=== PATIENT | male | born 1945 | race Caucasian/White ===

== ENCOUNTER 2024-10-22 20:29 | Inpatient (IN) ==
[2024-10-22] MEDS ORDERED: IOPAMIDOL 100 ML BOTTLE IV ONE (20:30)
[2024-10-22] MEDS: ASPIRIN 81 MG TAB.CHEW CHEWED ONE (20:58)
[2024-10-22 21:28] LABS: Basophils # (Auto) 0.03 K/mcL (0.00-0.30); Basophils % (Auto) 0.4 % (0.0-2.0); Eosinophils # (Auto) 0.19 K/mcL (0.00-0.70); Eosinophils % (Auto) 2.3 % (0.0-7.0); Hemoglobin 15.8 g/dL (13.7-17.5); Lymphocytes # (Auto) 2.01 K/mcL (1.50-4.80); Mean Cell Volume 98.3 fL (80.0-100.0); Mean Corpuscular HGB Conc 34.3 g/dL (31.0-36.0); Mean Platelet Volume 10.4 fL (8.8-12.5); Monocytes # (Auto) 0.74 K/mcL (0.10-0.90); Monocytes % (Auto) 8.8 % (1.0-12.0); Neutrophils % (Auto) 64.4 % (38.0-78.0); Platelet Count 257 K/mcL (140-440); RBC 4.68 M/mcL (4.63-6.08); Red Cell Distribution Width 12.9 % (11.5-14.5); WBC 8.4 K/mcL (4.5-11.0)
[2024-10-22 22:42] LABS: Appearance,Urine Clear (Clear); Bilirubin,Urine Negative (Negative); Color,Urine Yellow; Glucose,Urine (UA) >=1000 mg/dL (Negative); Ketones,Urine Negative (Negative); Leukocyte Esterase,Urine Negative /uL (Negative); Nitrate,Urine Negative (Negative); PH,Urine 5.5 (5.0-9.0); Protein,Urine Negative (Negative); Specific Gravity,Urine <= 1.005 (1.000-1.035); Urine Blood Negative ery/mcL (Negative); Urine RBC 0 /hpf (0-3); Urine Squamous Epithelial Cell 0 /hpf (0-4); Urine WBC 0 /hpf (0-4); Urobilinogen,Urine Normal
[2024-10-22 22:44] LABS: ALT/SGPT 9 U/L (<40); AST/SGOT 16 U/L (<40); Albumin 3.7 gm/dL (3.2-5.2); Albumin/Globulin Ratio 1.9 (1.0-2.3); Alkaline Phosphatase 68 U/L (39-117); Bilirubin,Total 0.4 mg/dL (0.1-1.0); Blood Urea Nitrogen 12 mg/dL (8-23); Calcium 9.1 mg/dL (8.6-10.4); Carbon Dioxide 23 mmol/L (22-30); Chloride 102 mmol/L (96-108); Glomerular Filtration Rate 82; Glucose 145 mg/dL (70-105); Potassium 3.6 mmol/L (3.3-5.1); Sodium 138 mmol/L (133-145)
[2024-10-22] MEDS: 0.9 % SODIUM CHLORIDE 1,000 ML IV ONE (23:10)
[2024-10-22 23:12] LABS: Prothrombin Time 14.2 sec (11.9-14.5)
[2024-10-22 23:17] LABS: Partial Thromboplastin Time 30.2 sec (20.0-37.0)
[2024-10-23] MEDS: APIXABAN 5 MG TABLET PO ONE (10:32)
[2024-10-23] MEDS ORDERED: METOCLOPRAMIDE 10 MG/2 ML VIAL IV PRN (11:59)
[2024-10-23] MEDS ORDERED: IPRATROPIUM/ALBUTEROL 3 ML AMPUL.NEB NEB PRN (11:59)
[2024-10-23] MEDS ORDERED: MAGNESIUM SULFATE 2 GM/50 ML BAG IV PRN (11:59)
[2024-10-23] MEDS ORDERED: ONDANSETRON 4 MG/2 ML VIAL IV PRN (11:59)
[2024-10-23] MEDS ORDERED: POTASSIUM CHLORIDE 20 MEQ TABLET PO PRN ×2 (11:59)
[2024-10-23] MEDS ORDERED: DEXTROSE 31 GM ORAL.SUSP PO PRN (11:59)
[2024-10-23] MEDS ORDERED: SENNOSIDES 1 TABLET PO PRN (11:59)
[2024-10-23] MEDS ORDERED: ACETAMINOPHEN 160 MG/5 ML ORAL.SOL PO PRN (11:59)
[2024-10-23] MEDS ORDERED: POTASSIUM CHLORIDE 40 MEQ in DEXTROSE 5% IN WATER 500 ML IV PRN (11:59)
[2024-10-23] MEDS ORDERED: POLYETHYLENE GLYCOL 3350 17 GM PACKET PO PRN (11:59)
[2024-10-23] MEDS ORDERED: DEXTROSE 50% 50 ML VIAL IV PRN (11:59)
[2024-10-23 12:54] LABS: HDL Cholesterol 42 mg/dL (>40); LDL Cholesterol,Calculated 67 mg/dL (<100); Non-HDL Cholesterol 83 mg/dL (<130); Triglycerides 81 mg/dL (<150)
[2024-10-23] MEDS: INSULIN LISPRO 1 UNIT/0.01 ML UNIT SQ SCH (13:40)
[2024-10-23] MEDS: METOPROLOL TARTRATE 5 MG/5 ML VIAL IV PRN (17:49)
[2024-10-23] MEDS: DOCUSATE SODIUM 100 MG CAPSULE PO SCH (20:09)
[2024-10-23] MEDS: ATORVASTATIN 40 MG TABLET PO SCH (20:09)
[2024-10-23] MEDS: APIXABAN 5 MG TABLET PO SCH (20:09)
[2024-10-24 06:32] LABS: ALT/SGPT 9 U/L (<40); AST/SGOT 17 U/L (<40); Albumin 3.9 gm/dL (3.2-5.2); Albumin/Globulin Ratio 1.8 (1.0-2.3); Alkaline Phosphatase 71 U/L (39-117); Bilirubin,Direct 0.3 mg/dL (<0.3); Bilirubin,Total 0.6 mg/dL (0.1-1.0); Blood Urea Nitrogen 17 mg/dL (8-23); Calcium 9.2 mg/dL (8.6-10.4); Carbon Dioxide 24 mmol/L (22-30); Chloride 102 mmol/L (96-108); Globulin 2.2 gm/dL (2.2-3.7); Glomerular Filtration Rate 86; Glucose 118 mg/dL (70-105); Lactate Dehydrogenase 167 U/L (135-225); Phosphorous 3.3 mg/dL (2.5-4.5); Potassium 4.1 mmol/L (3.3-5.1); Sodium 138 mmol/L (133-145); Triglycerides 69 mg/dL (<150); Uric Acid 5.6 mg/dL (2.5-8.0)
[2024-10-24 07:30] LABS: Digoxin 0.4 ng/mL
[2024-10-24 07:31] LABS: Estimated Average Glucose(eAG) 194 mg/dL; Hemoglobin A1C 8.4 % Hgb (4.0-6.0)
[2024-10-24] MEDS ORDERED: METOPROLOL SUCCINATE 50 MG TAB.XL.24H PO SCH (09:00)
[2024-10-24] MEDS: CLOPIDOGREL 75 MG TABLET PO SCH (09:13)
[2024-10-24] MEDS: INSULIN GLARGINE, HUMAN 1 UNIT/0.01 ML SQ SCH (09:13)
[2024-10-24] MEDS: DIGOXIN 125 MCG TABLET PO SCH (14:09)
[2024-10-27 09:50] VITALS: TEMP 97.4; O2SAT 98
== END 2024-10-27 10:04 | DRG 65 ==
LOC: ED 20:29 → ICU 10-23 11:53 → MEDSUR 10-24 23:40
PROVIDERS: ADMIT Internal Medicine; ATTEND Internal Medicine

== ENCOUNTER 2025-08-11 23:21 | Observation (INO) ==
[2025-08-12 00:05] LABS: Basophils # (Auto) 0.04 K/mcL (0.00-0.30); Basophils % (Auto) 0.5 % (0.0-2.0); Eosinophils # (Auto) 0.17 K/mcL (0.00-0.70); Eosinophils % (Auto) 1.9 % (0.0-7.0); Hematocrit 44.2 % (40.1-51.0); Hemoglobin 15.6 g/dL (13.7-17.5); Lymphocytes # (Auto) 1.35 K/mcL (1.50-4.80); Lymphocytes % (Auto) 15.4 % (15.5-49.0); Mean Corpuscular HGB Conc 35.3 g/dL (31.0-36.0); Monocytes # (Auto) 0.60 K/mcL (0.10-0.90); Monocytes % (Auto) 6.8 % (1.0-12.0); Neutrophils % (Auto) 75.2 % (38.0-78.0); Platelet Count 261 K/mcL (140-440); RBC 4.49 M/mcL (4.63-6.08); WBC 8.8 K/mcL (4.5-11.0)
[2025-08-12 00:36] LABS: Thyroid Stimulating Hormone 3.79 uIU/mL (0.27-5.01)
[2025-08-12 00:47] LABS: ALT/SGPT 18 U/L (<40); AST/SGOT 16 U/L (<40); Albumin 4.3 gm/dL (3.2-5.2); Albumin/Globulin Ratio 1.7 (1.0-2.3); Alkaline Phosphatase 77 U/L (39-117); Anion Gap 10.0 (8.0-16.0); Bilirubin,Total 0.3 mg/dL (0.1-1.0); Blood Urea Nitrogen 13 mg/dL (8-23); Calcium 9.4 mg/dL (8.6-10.4); Carbon Dioxide 25 mmol/L (22-30); Chloride 103 mmol/L (96-108); Globulin 2.6 gm/dL (2.2-3.7); Glucose 135 mg/dL (70-105); Potassium 4.0 mmol/L (3.3-5.1); Sodium 138 mmol/L (133-145)
[2025-08-12] MEDS ORDERED: ONDANSETRON 4 MG/2 ML VIAL IV PRN (02:48)
[2025-08-12] MEDS ORDERED: ACETAMINOPHEN 325 MG TABLET PO PRN (02:48)
[2025-08-12] MEDS ORDERED: SENNOSIDES 1 TABLET PO PRN (02:48)
[2025-08-12] MEDS ORDERED: LORazepam 2 MG/ML VIAL IV PRN (02:53)
[2025-08-12 06:17] LABS: Basophils # (Auto) 0.03 K/mcL (0.00-0.30); Basophils % (Auto) 0.4 % (0.0-2.0); Eosinophils # (Auto) 0.15 K/mcL (0.00-0.70); Eosinophils % (Auto) 2.0 % (0.0-7.0); Hematocrit 43.2 % (40.1-51.0); Hemoglobin 15.0 g/dL (13.7-17.5); Lymphocytes # (Auto) 2.32 K/mcL (1.50-4.80); Lymphocytes % (Auto) 31.3 % (15.5-49.0); Mean Corpuscular HGB Conc 34.7 g/dL (31.0-36.0); Monocytes # (Auto) 0.64 K/mcL (0.10-0.90); Monocytes % (Auto) 8.6 % (1.0-12.0); Neutrophils % (Auto) 57.6 % (38.0-78.0); Platelet Count 249 K/mcL (140-440); RBC 4.37 M/mcL (4.63-6.08); WBC 7.4 K/mcL (4.5-11.0)
[2025-08-12 06:49] LABS: ALT/SGPT 13 U/L (<40); AST/SGOT 14 U/L (<40); Albumin 4.0 gm/dL (3.2-5.2); Albumin/Globulin Ratio 1.7 (1.0-2.3); Alkaline Phosphatase 71 U/L (39-117); Anion Gap 10.0 (8.0-16.0); Bilirubin,Direct 0.4 mg/dL (<0.3); Bilirubin,Total 0.5 mg/dL (0.1-1.0); Blood Urea Nitrogen 14 mg/dL (8-23); Calcium 9.2 mg/dL (8.6-10.4); Carbon Dioxide 24 mmol/L (22-30); Chloride 105 mmol/L (96-108); Globulin 2.4 gm/dL (2.2-3.7); Glucose 78 mg/dL (70-105); HDL Cholesterol 46 mg/dL (>40); LDL Cholesterol,Calculated 46 mg/dL (<100); Phosphorous 3.8 mg/dL (2.5-4.5); Potassium 3.6 mmol/L (3.3-5.1); Sodium 139 mmol/L (133-145); Thyroid Stimulating Hormone 2.35 uIU/mL (0.27-5.01); Triglycerides 56 mg/dL (<150); Uric Acid 4.9 mg/dL (2.5-8.0)
[2025-08-12 07:09] LABS: Estimated Average Glucose(eAG) 203 mg/dL; Hemoglobin A1C 8.7 % Hgb (4.0-6.0)
[2025-08-12] MEDS ORDERED: ASPIRIN 81 MG TAB.CHEW CHEWED SCH (09:00)
[2025-08-12] MEDS ORDERED: APIXABAN 5 MG TABLET PO SCH (09:00)
[2025-08-12] MEDS ORDERED: HEPARIN 5,000 UNIT/ML VIAL SQ SCH (09:00)
[2025-08-12] MEDS: 0.9 % SODIUM CHLORIDE 10 ML SYRINGE IV SCH (09:46)
[2025-08-12] MEDS: APIXABAN 5 MG TABLET PO SCH (10:45)
[2025-08-12 15:30] LABS: Bacteria,Urine Few /hpf (0); Bilirubin,Urine NEGATIVE (Negative); Color,Urine YELLOW; Glucose,Urine (UA) >=1000 mg/dL (Negative); Ketones,Urine NEGATIVE (Negative); Leukocyte Esterase,Urine NEGATIVE /uL (Negative); Mucus,Urine Mod /hpf; PH,Urine 5.5 (5.0-9.0); Protein,Urine NEGATIVE (Negative); Specific Gravity,Urine 1.025 (1.000-1.035); Urobilinogen,Urine 0.2 mg/dL
[2025-08-12] MEDS: LATANOPROST OPHTH DROPS 2.5ML BOTTLE OS SCH (20:16)
[2025-08-12] MEDS: ATORVASTATIN 40 MG TABLET PO SCH (20:16)
[2025-08-12] MEDS ORDERED: ATORVASTATIN 40 MG TABLET PO SCH (21:00)
[2025-08-13] MEDS: MELATONIN 3 MG TABLET PO PRN (01:12)
[2025-08-13] MEDS ORDERED: CLOPIDOGREL 75 MG TABLET PO SCH (09:00)
[2025-08-13] MEDS: DIGOXIN 125 MCG TABLET PO SCH (09:04)
[2025-08-13] MEDS: CLOPIDOGREL 75 MG TABLET PO SCH (09:05)
[2025-08-13] MEDS: Tiotropium-Olodaterol [Stiolto Respimat] 2.5-2.5 mcg Inhaler INH SCH (09:06)
[2025-08-13] MEDS: INSULIN GLARGINE, HUMAN 1 UNIT/0.01 ML SQ SCH (09:11)
[2025-08-13] MEDS ORDERED: DEXTROSE 31 GM ORAL.SUSP PO PRN (09:13)
[2025-08-13] MEDS ORDERED: DEXTROSE 50% 50 ML VIAL IV PRN (09:13)
[2025-08-13] MEDS: METOPROLOL SUCCINATE 25 MG TAB.XL.24H PO SCH (09:48)
[2025-08-13] MEDS: INSULIN LISPRO 1 UNIT/0.01 ML UNIT SQ SCH (11:22)
[2025-08-13 13:20] VITALS: TEMP 97.6
[2025-08-13 13:58] VITALS: O2SAT 97
== END 2025-08-13 14:48 | disposition home or self-care (01) ==
LOC: ED 23:21 → ICU 23:21 → MEDSUR 08-12 17:33
PROVIDERS: ADMIT Student in an Organized Health Care Education/Training Program; ATTEND Internal Medicine

== ENCOUNTER 2025-09-07 03:32 | Observation (INO) ==
[2025-09-07 04:03] LABS: VBG HCO3 25.5 mmol/L (24.0-28.0); VBG PCO2 35.9 mmHg (41.0-51.0); VBG PH 7.47 U (7.32-7.42); VBG PO2 52.9 mmHg (25.0-40.0)
[2025-09-07 04:03] LABS: Basophils # (Auto) 0.03 K/mcL (0.00-0.30); Basophils % (Auto) 0.4 % (0.0-2.0); Eosinophils # (Auto) 0.17 K/mcL (0.00-0.70); Eosinophils % (Auto) 2.5 % (0.0-7.0); Hematocrit 43.5 % (40.1-51.0); Hemoglobin 14.9 g/dL (13.7-17.5); Lymphocytes # (Auto) 1.56 K/mcL (1.50-4.80); Lymphocytes % (Auto) 22.5 % (15.5-49.0); Mean Corpuscular HGB Conc 34.3 g/dL (31.0-36.0); Monocytes # (Auto) 0.55 K/mcL (0.10-0.90); Monocytes % (Auto) 7.9 % (1.0-12.0); Neutrophils % (Auto) 66.6 % (38.0-78.0); Platelet Count 190 K/mcL (140-440); RBC 4.34 M/mcL (4.63-6.08); WBC 6.9 K/mcL (4.5-11.0)
[2025-09-07] MEDS: 0.9 % SODIUM CHLORIDE 1,000 ML IV ONE (04:13)
[2025-09-07 04:26] LABS: Beta Hydroxybutyrate 0.20 mmol/L (<0.27)
[2025-09-07 04:27] LABS: ALT/SGPT 14 U/L (<40); AST/SGOT 17 U/L (<40); Albumin 4.0 gm/dL (3.2-5.2); Albumin/Globulin Ratio 1.7 (1.0-2.3); Alkaline Phosphatase 72 U/L (39-117); Anion Gap 12.0 (8.0-16.0); Bilirubin,Total 0.3 mg/dL (0.1-1.0); Blood Urea Nitrogen 11 mg/dL (8-23); Calcium 9.3 mg/dL (8.6-10.4); Carbon Dioxide 23 mmol/L (22-30); Chloride 100 mmol/L (96-108); Globulin 2.4 gm/dL (2.2-3.7); Glucose 306 mg/dL (70-105); Potassium 4.1 mmol/L (3.3-5.1); Sodium 135 mmol/L (133-145)
[2025-09-07 04:35] LABS: Bilirubin,Urine NEGATIVE (Negative); Color,Urine LT. YELLOW; Glucose,Urine (UA) >=1000 mg/dL (Negative); Ketones,Urine NEGATIVE (Negative); Leukocyte Esterase,Urine NEGATIVE /uL (Negative); PH,Urine 6.5 (5.0-9.0); Protein,Urine NEGATIVE (Negative); Specific Gravity,Urine 1.010 (1.000-1.035); Urine Budding Yeast Few /hpf; Urobilinogen,Urine 1.0 mg/dL
[2025-09-07] MEDS: INSULIN REGULAR, HUMAN 1 UNIT/0.01 ML UNIT SQ ONE ×2 (07:57→07:59)
[2025-09-07] MEDS ORDERED: DEXTROSE 50% 50 ML VIAL IV PRN (11:28)
[2025-09-07] MEDS ORDERED: ONDANSETRON 4 MG/2 ML VIAL IV PRN (11:28)
[2025-09-07] MEDS ORDERED: POLYETHYLENE GLYCOL 3350 17 GM PACKET PO PRN (11:28)
[2025-09-07] MEDS ORDERED: IPRATROPIUM/ALBUTEROL 3 ML AMPUL.NEB NEB PRN (11:28)
[2025-09-07] MEDS ORDERED: SENNOSIDES 1 TABLET PO PRN (11:28)
[2025-09-07] MEDS ORDERED: DEXTROSE 31 GM ORAL.SUSP PO PRN (11:28)
[2025-09-07] MEDS: INSULIN LISPRO 1 UNIT/0.01 ML UNIT SQ SCH (12:38)
[2025-09-07] MEDS: 0.9 % SODIUM CHLORIDE 10 ML SYRINGE IV SCH (14:53)
[2025-09-07] MEDS: ATORVASTATIN 40 MG TABLET PO SCH (20:38)
[2025-09-07] MEDS: APIXABAN 5 MG TABLET PO SCH (20:38)
[2025-09-07] MEDS: MELATONIN 3 MG TABLET PO PRN (20:45)
[2025-09-08 06:52] LABS: Basophils # (Auto) 0.03 K/mcL (0.00-0.30); Basophils % (Auto) 0.4 % (0.0-2.0); Eosinophils # (Auto) 0.11 K/mcL (0.00-0.70); Eosinophils % (Auto) 1.4 % (0.0-7.0); Hematocrit 40.1 % (40.1-51.0); Hemoglobin 14.1 g/dL (13.7-17.5); Lymphocytes # (Auto) 1.44 K/mcL (1.50-4.80); Lymphocytes % (Auto) 18.5 % (15.5-49.0); Mean Corpuscular HGB Conc 35.2 g/dL (31.0-36.0); Monocytes # (Auto) 0.47 K/mcL (0.10-0.90); Monocytes % (Auto) 6.0 % (1.0-12.0); Neutrophils % (Auto) 73.6 % (38.0-78.0); Platelet Count 192 K/mcL (140-440); RBC 4.07 M/mcL (4.63-6.08); WBC 7.8 K/mcL (4.5-11.0)
[2025-09-08 07:04] LABS: Phosphorous 3.3 mg/dL (2.5-4.5)
[2025-09-08] MEDS: DIGOXIN 125 MCG TABLET PO SCH (09:27)
[2025-09-08] MEDS: CLOPIDOGREL 75 MG TABLET PO SCH (09:27)
[2025-09-08] MEDS: INSULIN GLARGINE, HUMAN 1 UNIT/0.01 ML SQ SCH (09:27)
[2025-09-08] MEDS: METOPROLOL SUCCINATE 50 MG TAB.XL.24H PO SCH (20:35)
[2025-09-08 23:08] LABS: Anion Gap 14.0 (8.0-16.0); Blood Urea Nitrogen 14 mg/dL (8-23); Calcium 9.0 mg/dL (8.6-10.4); Carbon Dioxide 19 mmol/L (22-30); Chloride 104 mmol/L (96-108); Glucose 172 mg/dL (70-105); Potassium 4.3 mmol/L (3.3-5.1); Sodium 137 mmol/L (133-145)
[2025-09-09] MEDS: ACETAMINOPHEN 325 MG TABLET PO PRN (03:05)
[2025-09-09 06:45] LABS: Basophils # (Auto) 0.03 K/mcL (0.00-0.30); Basophils % (Auto) 0.5 % (0.0-2.0); Eosinophils # (Auto) 0.18 K/mcL (0.00-0.70); Eosinophils % (Auto) 2.8 % (0.0-7.0); Hematocrit 40.2 % (40.1-51.0); Hemoglobin 14.0 g/dL (13.7-17.5); Lymphocytes # (Auto) 1.22 K/mcL (1.50-4.80); Lymphocytes % (Auto) 19.2 % (15.5-49.0); Mean Corpuscular HGB Conc 34.8 g/dL (31.0-36.0); Monocytes # (Auto) 0.55 K/mcL (0.10-0.90); Monocytes % (Auto) 8.6 % (1.0-12.0); Neutrophils % (Auto) 68.9 % (38.0-78.0); Platelet Count 208 K/mcL (140-440); RBC 4.07 M/mcL (4.63-6.08); WBC 6.4 K/mcL (4.5-11.0)
[2025-09-09 06:51] LABS: Phosphorous 3.8 mg/dL (2.5-4.5)
[2025-09-09 06:52] LABS: Anion Gap 10.0 (8.0-16.0); Blood Urea Nitrogen 13 mg/dL (8-23); Calcium 9.1 mg/dL (8.6-10.4); Carbon Dioxide 24 mmol/L (22-30); Chloride 103 mmol/L (96-108); Glucose 109 mg/dL (70-105); Potassium 4.1 mmol/L (3.3-5.1); Sodium 137 mmol/L (133-145)
[2025-09-09] MEDS: INSULIN ASPART U SUB-Q SCH (10:21)
[2025-09-09 11:11] VITALS: TEMP 97.9; O2SAT 95
== END 2025-09-09 13:03 ==
LOC: ED 03:32 → MEDSUR 03:32
PROVIDERS: ADMIT Student in an Organized Health Care Education/Training Program; ATTEND Student in an Organized Health Care Education/Training Program